=== PATIENT | female | born 1940 | race Caucasian/White ===

== ENCOUNTER 2020-10-17 17:37 | Emergency (ER) | payer OTHER, SELFPAY ==
--- NOTE | ~2020-10-17 | CT_ITS ---
EXAMINATION: CT HEAD WITHOUT CONTRAST CLINICAL INFORMATION: Fall, bleed. COMPARISON: None TECHNIQUE: Contiguous axial imaging was performed from the skull base to vertex without intravenous administration of contrast. This CT examination was performed using dose optimization techniques as appropriate, variously including the following: *Automated exposure control. *Adjustment of mA and/or kV according to patient size (this includes techniques or standardized protocols for targeted exams where dose is matched to indication/reason for exam; i.e. extremities or head). *Use of iterative reconstruction technique. DLP: 749 mGy-cm FINDINGS: There is no evidence of acute intracranial hemorrhage or territorial infarction. No abnormal mass effect or midline shift is seen. [id number] matter differentiation is well preserved. No extra-axial fluid collections are identified. Sulcal and ventricular prominence from cerebral volume loss. Moderate periventricular and deep white matter hypodensities, suggestive of chronic microangiopathic changes. No acute calvarial fracture. Paranasal sinuses and mastoid air cells are well aerated. CT/CT head/brain wo con IMPRESSION: No CT evidence of acute intracranial pathology.
--- NOTE | ~2020-10-17 | XR_ITS ---
EXAMINATION: XR SHOULDER , RIGHT CLINICAL INFORMATION: Fall injury COMPARISON: None available at the time of this dictation. TECHNIQUE: AP external rotation, Grashey, scapular Y, and axillary views of the shoulder. FINDINGS: BONES: Compression fracture of the humeral head greater tuberosity, adjacent displaced fracture fragment approximately 7 mm.. JOINTS: Glenohumeral joint is properly positioned. 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 SOFT TISSUE AND INCLUDED LUNG: Normal. XR/XR shoulder RT min 2V IMPRESSION: Mildly compressed fracture humeral head greater tuberosity. Displaced chip fractures 7 mm lateral to the humeral neck uncertain origin. No dislocation
[2020-10-17 17:45] VITALS: BP 167/71; PULSE 65; RESP 16; TEMP 37.1; O2SAT 96; BMI 26.6
--- NOTE | 2020-10-17 19:57 | ED.FALL ---
HPI - Fall General Chief Complaint: Fall Stated Complaint: shoulder injury Time Seen by Provider: 10/17/20 19:57 History of Present Illness HPI Narrative: Patient complains of right shoulder pain after a trip and fall this morning, patient remembers everything about the fall she was walking along tripped and fell forward on her outstretched arms and felt a sharp pain in the right shoulder Patient denies any fainting no feeling faint no palpitations no chest pain no shortness of breath prior to the fall, no numbness weakness or tingling, she has no headache she does not feel dizzy now The family said she had an episode of confusion today where she was not answering questions clearly and were concerned about this Related Data Allergies Allergy/AdvReac Type Severity Reaction Status Date / Time No Known Allergies Allergy Verified 10/17/20 17:52 [No Known Allergies*] Review of Systems Review of Systems: Positive for right shoulder pain negatives are no headache no dizziness no vision change no nausea or vomiting no neck pain no numbness weakness or tingling no back pain no chest pain no shortness of breath no palpitations no fainting or feeling faint no abdominal pain Yes all other systems are reviewed and are negative [facility] Past Medical History Source: nursing notes reviewed Medical History (Updated 10/17/20 @ 21:14 by TARIQ Jackson) Hypercholesteremia Hypertension Hypothyroidism Social History Social History Advance Directives: No Advance Directives Information Provided: Yes Physical Exam Vital Signs: Vital Signs: Last Vital Signs Temp 98.7 F 10/17/20 17:45 Pulse 65 10/17/20 17:45 Resp 16 10/17/20 17:45 BP 167/71 H 10/17/20 17:45 Pulse Ox 96 10/17/20 17:45 Body Mass Index 26.6 General appearance is no acute distress, she is come cooperative and O x3 Head is normocephalic atraumatic Pupils equal round reactive to light Extra ocular motions are intact No barrera sign no raccoon eyes no scalp hematoma Neck is supple and nontender Chest is clear to auscultation bilateral ears no tenderness to chest wall no rib tenderness Abdomen soft nontender Right shoulder exam the patient has very limited range of motion there is some mild swelling to the right shoulder no ecchymosis there is tenderness and the arm is neurovascularly intact distal with all skin intact, 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 5/5 and sensation is intact and symmetrical Extremities are normal range of motion in both legs without any acute tenderness swelling or deformity Skin is intact Neuro cranial nerves 2-12 are intact as tested, verbal interaction both understanding and communication are normal, speech is normal, there is no facial asymmetry, motor is 5/5 x4, cerebellar exam is normal Course Course Course Narrative: At this moment of time the patient is not confused and is responding completely appropriately and intelligent lead all questions As family was concerned about her confusion earlier in the day CT and lab evaluation was done to rule out any intracranial bleed Patient remains comfortable and communicative throughout ER visit Cardiac causes very unlikely as she never experienced any chest pain shortness of breath dizziness or sweating, she does not recall any fainting or feeling faint Head CT was negative without evidence of a bleed or fracture, lab evaluation the CBC showed no evidence of anemia She was tested walking in her gait and balance are fine At 21:00 the chemistry panel is pending and case is signed out to physician embroidery assistant mona to follow chemistry, and re-evaluate patient prior to disposition MDM - Fall Lab Data Result diagrams: 10/17/20 20:38 10/17/20 20:38 Labs: Lab Results 10/17/20 10/17/20 Range/Units 20:38 20:38 WBC 13.0 H (4.8-10.8) X10*3/uL RBC 4.30 (4.20-5.50) X10*6/uL Hgb 13.2 (12.0-16.0) g/dl Hct 40.6 (37-47) % MCV 94.4 (80-98) fL MCH 30.7 (27.0-33.0) pg MCHC 32.5 (31.0-35.0) g/dl RDW 12.9 (11.0-16.0) % Plt Count 282 (160-400) X10*3/uL MPV 10.0 (9.4-12.3) fL Immature Gran % (Auto) 0.4 (0.0-0.4) % Neut % (Auto) 77.6 H (45-73) % Lymph % (Auto) 15.9 L (20-40) % Garland % (Auto) 5.7 (2-11) % Eos % (Auto) 0.2 (0-4) % Baso % (Auto) 0.2 (0-2) % Lymph # (Auto) 2.1 (1.2-4.9) X10*3/uL Garland # (Auto) 0.7 (0.1-1.2) X10*3/uL Eos # (Auto) 0.0 (0.0-0.4) X10*3/uL Baso # (Auto) 0.0 (0.0-0.2) X10*3/uL Abs Immat Gran (auto) 0.05 H (0.00-0.03) X10*3/uL Absolute Neuts (auto) 10.1 H (2.0-8.3) X10*3/uL Absolute Nucleated RBC 0.000 (0.0-0.012) X10*3/uL Nucleated RBC % (auto) 0.0 (0.0-0.2) /100WBC Sodium 141 (135-145) mmol/L Potassium 3.8 (3.3-5.1) mmol/L Chloride 107 (96-108) mmol/L Carbon Dioxide 22 (22-29) mmol/L Anion Gap 16 (12-20) BUN 14 (9-16) mg/dL Creatinine 0.92 (0.5-1.4) mg/dL Estim Creat Clear Calc 50.2 Estimated GFR 59 Random Glucose 125 H (60-115) mg/dL Calcium 9.7 (8.4-10.2) mg/dL Discharge Plan Discharge Clinical Impression: Closed right humeral fracture Patient Disposition: Home, Self-Care Additional Instructions: X-ray showed a right humerus fracture so follow closely with orthopedist We did a head CT because of the episode of confusion today and it did not show any bleed or evidence of stroke or any acute abnormality We checked labs and there was no significant abnormality During entire ER visit Pilar did not show any confusion and had clear understanding and expressed herself clearly, I tested her walking and her balance was good Follow with primary doctor Return to ER any time for any worse condition or any concerns Referrals: Tracy Lima MD [Physician] - 2 days (Right humerus fracture)
[2020-10-17 20:42] LABS: MANUAL DIFF FLAG NO
[2020-10-17 20:48] LABS: Basophils Percent Auto 0.2 % (0-2); Eosinophils Percent Auto 0.2 % (0-4); Hematocrit 40.6 % (37-47); Hemoglobin 13.2 g/dl (12.0-16.0); Imm Gran Abs Auto 0.05 X10*3/uL (0.00-0.03); Imm Gran Pct Auto 0.4 % (0.0-0.4); Lymphocytes Absolute Auto 2.1 X10*3/uL (1.2-4.9); Lymphocytes Percent Auto 15.9 % (20-40); Mean Corpuscular HGB Conc 32.5 g/dl (31.0-35.0); Mean Corpuscular Hemoglobin 30.7 pg (27.0-33.0); Mean Corpuscular Volume 94.4 fL (80-98); Monocytes Absolute Auto 0.7 X10*3/uL (0.1-1.2); Monocytes Percent Auto 5.7 % (2-11); Neutrophils Absolute Auto 10.1 X10*3/uL (2.0-8.3); Neutrophils Percent Auto 77.6 % (45-73); Platelet Count 282 X10*3/uL (160-400); Red Cell Distribution Width 12.9 % (11.0-16.0)
[2020-10-17 21:14] LABS: Anion Gap 16 (12-20); Blood Urea Nitrogen 14 mg/dL (9-16); Calcium 9.7 mg/dL (8.4-10.2); Carbon Dioxide 22 mmol/L (22-29); Chloride 107 mmol/L (96-108); Creatinine Clr Calc Pharmacy 50.2; Estimated Glomerular Filt Rate 59; Glucose Random 125 mg/dL (60-115); Potassium 3.8 mmol/L (3.3-5.1); Sodium 141 mmol/L (135-145)
[2020-10-17] MEDS: Acetaminophen 325 MG TABLET 975 MG PO (21:18)
--- NOTE | 2020-10-17 21:23 | PC.NURSE ---
SLING APPLIED TO R ARM.
== END 2020-10-17 21:55 | disposition home or self-care (01) ==
PROVIDERS: Emergency Provider Emergency Medicine
DX: S42.251A Displaced fracture of greater tuberosity of right humerus, initial encounter for closed fracture (principal); W01.0XXA Fall on same level from slipping, tripping and stumbling without subsequent striking against object, initial encounter; I10 Essential (primary) hypertension; E78.00 Pure hypercholesterolemia, unspecified; R41.0 Disorientation, unspecified; Y93.89 Activity, other specified; Y92.9 Unspecified place or not applicable; Y99.9 Unspecified external cause status
CPT/HCPCS: 36415; 70450; 73030; 80048; 85025; 99283; 99284

== ENCOUNTER 2021-10-06 19:18 | Outpatient (REF) | payer OTHER, SELFPAY ==
--- NOTE | ~2021-10-06 | MR_ITS ---
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 COMPARISON: 10/17/2020 CT brain. TECHNIQUE: Multiplanar multisequence MR imaging of the brain was done without IV contrast. FINDINGS: BRAIN VOLUME: There is [id number] generalized diffuse nonspecific brain parenchymal volume loss noted supratentorially. STRUCTURAL: No malformations. BRAIN AND MENINGES: DWI sequence demonstrates no restricted diffusion. Specifically, there is no evidence for acute or subacute cerebral ischemia. There are extensive patchy and confluent regions of FLAIR/T2 signal hyperintensity within the subcortical and deeper periventricular white matter of both cerebral hemispheres, likely reflecting advanced chronic ischemic microangiopathy and/or subcortical arteriosclerotic encephalopathy. These foci of T2 hyperintensity are mildly T1 hypointense. Small zones of T2 hyperintensity are seen in the christel on both sides of the midline also likely reflecting chronic ischemic microangiopathy. Gradient refocused imaging demonstrates no evidence for hemorrhage, hemosiderin staining or unusual mineral deposition. No extra-axial fluid collections, significant space-occupying process or mass effect are identified. There is a mild degree of etat crible at the level of the basal ganglia. VENTRICLES AND SUBARACHNOID SPACES: The ventricular system and subarachnoid spaces are consistent with generalized volume loss without hydrocephalus. ORBITAL STRUCTURES: Bilateral lens extractions are noted. Otherwise, the visualized orbital structures are grossly unremarkable within the limitations of the study. VASCULAR: Signal voids are noted in the visualized major intracranial vessels. OSSEOUS STRUCTURES, SINUSES/MASTOIDS, EXTRACRANIAL SOFT TISSUES: There is some mucosal thickening in the ethmoid complex bilaterally. Osseous marrow signal intensity appears homogeneous. Visualized extracranial soft tissue structures appear grossly unremarkable. MR/MR head/brain wo con IMPRESSION: 1. Findings most consistent with advanced chronic ischemic microangiopathy in the white matter of both cerebral hemispheres with probable chronic ischemic changes involving the christel and perhaps the thalami bilaterally. 2. No evidence for hemorrhage, extra-axial fluid collection, acute or subacute infarct, space-occupying process or mass effect. 3. Diffuse generalized brain parenchymal volume loss without hydrocephalus.
== END 2021-10-06 19:19 | disposition home or self-care (01) ==
LOC: HO.MRI 19:18
PROVIDERS: Visit Provider Psychiatry & Neurology Neurology
DX: F03.90 Unspecified dementia, unspecified severity, without behavioral disturbance, psychotic disturbance, mood disturbance, and anxiety (principal)
CPT/HCPCS: 70551

== ENCOUNTER 2021-10-13 12:32 | Outpatient (REF) | payer OTHER, SELFPAY ==
[2021-10-13 14:25] LABS: Vitamin B12 752 pg/mL (200-900)
== END 2021-10-13 12:33 | disposition home or self-care (01) ==
LOC: HO.LAB 12:32
PROVIDERS: PCP Internal Medicine; Visit Provider Psychiatry & Neurology Neurology
DX: F03.90 Unspecified dementia, unspecified severity, without behavioral disturbance, psychotic disturbance, mood disturbance, and anxiety (principal)
CPT/HCPCS: 36415; 82607